=== PATIENT | female | born 1990 | race Caucasian/White ===

== ENCOUNTER 2021-06-20 14:07 | Emergency (ER) | payer OTHER ==
[~2021-06-20] VITALS: Ht 165.1 cm; Wt 63.6 kg
[2021-06-20] MEDS ORDERED: CYMB1CAP5 PO (14:19)
[2021-06-20] MEDS ORDERED: ORTH1TAB8 PO (14:19)
[2021-06-20 15:42] LABS: BASO % 0.5 % (0.0-1.0); EOS # 0.1 10^3/uL (0.0-0.5); HEMATOCRIT 37.2 % (36.0-47.0); HEMOGLOBIN 12.7 g/dl (12.0-15.5); LYMPH # 1.6 10^3/uL (1.5-5.0); LYMPH % 25.8 % (24.0-44.0); MEAN CORPUSCULAR HEMOGLOBIN 32.1 pg (27.0-33.0); MEAN CORPUSCULAR HGB CONC 34.1 g/dl (32.0-36.5); MEAN CORPUSCULAR VOLUME 93.9 fl (80.0-96.0); MONO # 0.5 10^3/uL (0.0-0.8); MONO % 7.8 % (2.0-8.0); NEUTROPHILS # 3.9 10^3/uL (1.5-8.5); NEUTROPHILS % 64.6 % (36.0-66.0); PLATELET COUNT, AUTOMATED 199 10^3/uL (150-450); RED BLOOD COUNT 3.96 10^6/uL (4.00-5.40)
[2021-06-20] MEDS ORDERED: NORCO, ANEXSIA 5/325MG TABLET (HYDROcodone/ACETAMINOPHEN) PO ONE (15:50)
[2021-06-20 16:04] LABS: ALBUMIN 3.7 GM/DL (3.2-5.2); ALT/SGPT 18 U/L (12-78); BILIRUBIN,DIRECT < 0.1 MG/DL (0.0-0.2); BILIRUBIN,TOTAL 0.2 MG/DL (0.2-1.0); TOTAL PROTEIN 6.9 GM/DL (6.4-8.2)
[2021-06-20] MEDS ORDERED: KETOROLAC TROMETHAMINE 10 MG TAB PO ONE (16:05)
[2021-06-20 16:09] LABS: INR 0.92; PROTHROMBIN TIME 12.8 SECONDS (12.7-14.5)
[2021-06-20 16:10] LABS: PARTIAL THROMBOPLASTIN TIME 26.2 SECONDS (25.9-37.0)
[2021-06-20] MEDS ORDERED: PROV10TA PO (17:03)
[2021-06-20 17:16] VITALS: BP 112/70
== END 2021-06-20 17:17 | disposition home or self-care (01) ==
LOC: M ED 14:07
DX: N93.8 Other specified abnormal uterine and vaginal bleeding (principal); F41.9 Anxiety disorder, unspecified

== ENCOUNTER 2021-07-02 12:11 | Emergency (ER) | payer OTHER ==
[~2021-07-02] VITALS: Ht 165.1 cm; Wt 65.7 kg
[~2021-07-02 12:11] MED LIST: CYMB1CAP5 PO; ORTH1TAB8 PO; PROV10TA PO
[2021-07-02] MEDS ORDERED: MEDR10TA (12:26)
[2021-07-02 13:23] LABS: BASO % 0.5 % (0.0-1.0); EOS % 0.5 % (0.0-3.0); HEMATOCRIT 36.5 % (36.0-47.0); HEMOGLOBIN 12.2 g/dl (12.0-15.5); LYMPH # 1.8 10^3/uL (1.5-5.0); MEAN CORPUSCULAR HGB CONC 33.4 g/dl (32.0-36.5); MEAN CORPUSCULAR VOLUME 95.8 fl (80.0-96.0); MONO # 0.4 10^3/uL (0.0-0.8); MONO % 5.6 % (2.0-8.0); NEUTROPHILS # 4.3 10^3/uL (1.5-8.5); NEUTROPHILS % 66.1 % (36.0-66.0); PLATELET COUNT, AUTOMATED 221 10^3/uL (150-450); RED BLOOD COUNT 3.81 10^6/uL (4.00-5.40); WHITE BLOOD COUNT 6.5 10^3/uL (4.0-10.0)
[2021-07-02 13:36] LABS: HCG, SERUM QUALITATIVE NEGATIVE (NEGATIVE)
[2021-07-02 13:45] LABS: BLOOD UREA NITROGEN 9 MG/DL (7-18); CALCIUM LEVEL 9.1 MG/DL (8.5-10.1); CARBON DIOXIDE LEVEL 26 MEQ/L (21-32); CHLORIDE LEVEL 106 MEQ/L (98-107); CREATININE FOR GFR 0.71 MG/DL (0.55-1.30); GLOMERULAR FILTRATION RATE > 60.0 (>60); GLUCOSE, FASTING 88 MG/DL (70-100); POTASSIUM SERUM 3.7 MEQ/L (3.5-5.1); SODIUM LEVEL 139 MEQ/L (136-145)
[2021-07-02] MEDS ORDERED: NS 1,000 ML IV ONE (14:15)
[2021-07-02] MEDS ORDERED: PROV10TA PO (16:01)
[2021-07-02 17:08] VITALS: BP 119/76
== END 2021-07-02 17:10 | disposition home or self-care (01) ==
LOC: M ED 12:11
DX: N93.8 Other specified abnormal uterine and vaginal bleeding (principal); N83.299 Other ovarian cyst, unspecified side; N85.00 Endometrial hyperplasia, unspecified; D25.9 Leiomyoma of uterus, unspecified; Z87.59 Personal history of other complications of pregnancy, childbirth and the puerperium; F41.9 Anxiety disorder, unspecified; D68.61 Antiphospholipid syndrome; Z79.899 Other long term (current) drug therapy

== ENCOUNTER → 2021-12-31 | Outpatient (CLI) | payer OTHER ==
[~2021-12-31] MED LIST changes: +MEDR10TA
== END ==
LOC: M WUC 13:20
PROVIDERS: ATTEND Internal Medicine Rheumatology
DX: M51.34 Other intervertebral disc degeneration, thoracic region (principal); R76.8 Other specified abnormal immunological findings in serum; D68.61 Antiphospholipid syndrome; M25.50 Pain in unspecified joint

== ENCOUNTER → 2022-01-05 | Outpatient (REF) | payer OTHER ==
[2022-01-05 13:21] LABS: BASO % 0.4 % (0.0-1.0); EOS # 0.1 10^3/uL (0.0-0.5); EOS % 1.3 % (0.0-3.0); HEMATOCRIT 37.4 % (36.0-47.0); HEMOGLOBIN 12.3 g/dl (12.0-15.5); LYMPH # 1.2 10^3/uL (1.5-5.0); LYMPH % 25.5 % (24.0-44.0); MEAN CORPUSCULAR HEMOGLOBIN 31.2 pg (27.0-33.0); MEAN CORPUSCULAR HGB CONC 32.9 g/dl (32.0-36.5); MEAN CORPUSCULAR VOLUME 94.9 fl (80.0-96.0); MONO # 0.3 10^3/uL (0.0-0.8); MONO % 5.3 % (2.0-8.0); NEUTROPHILS # 3.2 10^3/uL (1.5-8.5); NEUTROPHILS % 67.3 % (36.0-66.0); PLATELET COUNT, AUTOMATED 216 10^3/uL (150-450); RED BLOOD COUNT 3.94 10^6/uL (4.00-5.40); WHITE BLOOD COUNT 4.7 10^3/uL (4.0-10.0)
[2022-01-05 13:40] LABS: APPEARANCE, URINE MANUAL CLEAR (CLEAR); BILIRUBIN, URINE MANUAL NEGATIVE (NEGATIVE); BLOOD URINE MANUAL NEGATIVE (NEGATIVE); COLOR, URINE MANUAL YELLOW (YELLOW); GLUCOSE, URINE (UA) MANUAL NEGATIVE (NEGATIVE); KETONE, URINE MANUAL NEGATIVE (NEGATIVE); LEUKOCYTE ESTERASE, URINE MAN NEGATIVE (NEGATIVE); NITRITE, URINE MANUAL NEGATIVE (NEGATIVE); PH,URINE MAN 5.5 UNITS (5.0 - 7.0); PROTEIN, URINE MANUAL NEGATIVE (NEGATIVE); SPECIFIC GRAVITY,URINE MANUAL 1.015 (1.002-1.035); UROBILINOGEN, URINE MANUAL NORMAL (NORMAL)
[2022-01-05 13:42] LABS: ERYTHROCYTE SEDIMENTATION RATE 10 mm/hr (0-20)
[2022-01-05 14:03] LABS: ALBUMIN 3.7 GM/DL (3.2-5.2); ALT/SGPT 18 U/L (12-78); BILIRUBIN,TOTAL 0.5 MG/DL (0.2-1.0); BLOOD UREA NITROGEN 11 MG/DL (7-18); CALCIUM LEVEL 9.1 MG/DL (8.5-10.1); CARBON DIOXIDE LEVEL 25 MEQ/L (21-32); CHLORIDE LEVEL 106 MEQ/L (98-107); COMPLEMENT C3 107 MG/DL (90-180); COMPLEMENT C4 17 MG/DL (10-40); CREATININE FOR GFR 0.88 MG/DL (0.55-1.30); CREATININE,RANDOM URINE 66.4 MG/DL; GLOMERULAR FILTRATION RATE > 60.0 (>60); GLUCOSE, FASTING 65 MG/DL (70-100); SODIUM LEVEL 136 MEQ/L (136-145); TOTAL PROTEIN 7.2 GM/DL (6.4-8.2); TOTAL PROTEIN,RANDOM URINE 8.1 MG/DL (0.0-12.0)
== END ==
LOC: M SFHCRHEU 11:16
PROVIDERS: ATTEND Internal Medicine Rheumatology
DX: R76.8 Other specified abnormal immunological findings in serum (principal); D68.61 Antiphospholipid syndrome; M25.50 Pain in unspecified joint

== ENCOUNTER → 2022-02-22 | Outpatient (REF) | payer OTHER | LOC: M PLALAB 13:12 | PROVIDERS: ATTEND Obstetrics & Gynecology | DX: N64.52 Nipple discharge (principal) ==

== ENCOUNTER → 2022-03-18 | Outpatient (CLI) | payer OTHER | LOC: M WHC 07:42 | PROVIDERS: ATTEND Obstetrics & Gynecology | DX: N64.52 Nipple discharge (principal); N63.11 Unspecified lump in the right breast, upper outer quadrant ==

== ENCOUNTER → 2023-08-10 | Outpatient (CLI) | payer OTHER ==
[~2023-08-10] MED LIST changes: -MEDR10TA; +MEDR10TA9
== END ==
LOC: M PLALAB 15:48
PROVIDERS: ATTEND Obstetrics & Gynecology
DX: Z12.4 Encounter for screening for malignant neoplasm of cervix (principal); Z80.41 Family history of malignant neoplasm of ovary

== ENCOUNTER → 2023-08-10 | Outpatient (CLI) | payer OTHER ==
[2023-08-10 18:08] LABS: BASO % 0.5 % (0.0-1.0); EOS % 0.3 % (0.0-3.0); HEMATOCRIT 36.9 % (36.0-47.0); HEMOGLOBIN 11.9 g/dl (12.0-15.5); LYMPH % 33.9 % (24.0-44.0); MEAN CORPUSCULAR HEMOGLOBIN 27.9 pg (27.0-33.0); MEAN CORPUSCULAR HGB CONC 32.2 g/dl (32.0-36.5); MEAN CORPUSCULAR VOLUME 86.4 fl (80.0-96.0); MONO # 0.4 10^3/uL (0.0-0.8); MONO % 7.2 % (2.0-8.0); NEUTROPHILS # 3.4 10^3/uL (1.5-8.5); NEUTROPHILS % 57.9 % (36.0-66.0); PLATELET COUNT, AUTOMATED 254 10^3/uL (150-450); RED BLOOD COUNT 4.27 10^6/uL (4.00-5.40); WHITE BLOOD COUNT 5.9 10^3/uL (4.0-10.0)
[2023-08-10 18:13] LABS: ERYTHROCYTE SEDIMENTATION RATE 8 mm/hr (0-20)
[2023-08-10 18:32] LABS: C REACTIVE PROTEIN QUANTITATIV < 0.40 MG/DL (<1.0)
[2023-08-10 18:34] LABS: ALBUMIN 4.3 G/DL (3.2-5.2); ALKALINE PHOSPHATASE 60 U/L (46-116); ALT/SGPT 17 U/L (7.0-40); AST/SGOT 15 U/L (<34); BILIRUBIN,TOTAL 0.6 MG/DL (0.3-1.2); BLOOD UREA NITROGEN 13 MG/DL (9-23); CALCIUM LEVEL 9.5 MG/DL (8.5-10.1); CARBON DIOXIDE LEVEL 26 MMOL/L (20-31); CHLORIDE LEVEL 104 MMOL/L (98-107); CREATININE FOR GFR 0.71 MG/DL (0.55-1.30); GLOMERULAR FILTRATION RATE > 60.0 (>60); GLUCOSE, FASTING 79 MG/DL (60-100); POTASSIUM SERUM 4.4 MMOL/L (3.5-5.1); SODIUM LEVEL 135 MMOL/L (136-145); THYROID STIMULATING HORMONE 1.516 uIU/ML (0.55-4.78); TOTAL PROTEIN 7.6 G/DL (5.7-8.2)
[2023-08-10 18:36] LABS: FREE T4 0.96 NG/DL (0.89-1.76)
[2023-08-12 23:07] LABS: IMMUNOTYPING SERUM IGA SO 276 mg/dL (87-352); IMMUNOTYPING SERUM IGM SO 187 mg/dL (26-217)
== END ==
LOC: M PLALAB 15:51
PROVIDERS: ATTEND Family Medicine
DX: R61 Generalized hyperhidrosis (principal)

== ENCOUNTER 2024-07-09 14:35 | Outpatient (CLI) | payer OTHER ==
[~2024-07-09] VITALS: Ht 165.1 cm; Wt 66.2 kg
[~2024-07-09 14:35] MED LIST changes: +ALBUTEROL SULFATE 2.5MG/0.5ML INH NEB SOLN INH PRN; +EPINEPHrine INJ 1 MG/ML 1ML AMP IM PRN; +diphenhydrAMINE 50MG/ML VIAL IV PRN; +methylPREDNISolone 125MG 2ML VIAL IV PRN
[2024-07-09 14:45] VITALS: BP 136/70; O2SAT 100
[2024-07-09 14:50] VITALS: BP 130/82; O2SAT 100
[2024-07-09] MEDS: IRON SUCROSE 300 MG in NS 250 ML OVER 90 MIN. IV ONE (14:51)
== END 2024-07-09 16:50 ==
LOC: M INFU 14:35
PROVIDERS: ATTEND Family Medicine
DX: D64.9 Anemia, unspecified (principal)
CPT/HCPCS: 96365; J1756

== ENCOUNTER 2024-07-16 14:45 | Outpatient (CLI) | payer OTHER ==
[~2024-07-16] VITALS: Ht 165.1 cm; Wt 63.6 kg
[2024-07-16 15:00] VITALS: BP 131/59; O2SAT 100
[2024-07-16] MEDS: IRON SUCROSE 300 MG in NS 250 ML OVER 90 MIN. IV ONE (15:06)
[2024-07-16 16:40] VITALS: BP 128/62; O2SAT 99
== END 2024-07-16 16:45 ==
LOC: M INFU 14:45
PROVIDERS: ATTEND Family Medicine
DX: D64.9 Anemia, unspecified (principal)
CPT/HCPCS: 96365; 96366; J1756

== ENCOUNTER → 2024-08-14 | Outpatient (REF) | payer OTHER ==
[~2024-08-14] MED LIST changes: -ALBUTEROL SULFATE 2.5MG/0.5ML INH NEB SOLN INH PRN; -EPINEPHrine INJ 1 MG/ML 1ML AMP IM PRN; -diphenhydrAMINE 50MG/ML VIAL IV PRN; -methylPREDNISolone 125MG 2ML VIAL IV PRN
== END ==
LOC: M LAB REF 12:18
PROVIDERS: ATTEND Dentist
DX: A31.9 Mycobacterial infection, unspecified (principal)

== ENCOUNTER 2024-12-10 12:25 | Outpatient (CLI) | payer OTHER ==
[~2024-12-10] VITALS: Ht 165.1 cm; Wt 63.6 kg
[~2024-12-10 12:25] MED LIST changes: +ALBUTEROL SULFATE 2.5 MG/0.5 ML INH CONCENTRATE NEB SOLN INH PRN; +EPINEPHrine INJ 1 MG/ML 1ML AMP IM PRN; +diphenhydrAMINE 50 MG/ML VIAL IV PRN
[2024-12-10 12:40] VITALS: BP 117/72; O2SAT 100
[2024-12-10] MEDS: IRON SUCROSE 300 MG in NS 250 ML OVER 90 MIN. IV ONE (13:11)
[2024-12-10 14:55] VITALS: BP 123/71; O2SAT 100
== END 2024-12-10 14:55 | disposition home or self-care (01) ==
LOC: M INFU 12:25
PROVIDERS: ATTEND Nurse Practitioner Primary Care
DX: D50.9 Iron deficiency anemia, unspecified (principal)
CPT/HCPCS: 96365; 96366; J1756

== ENCOUNTER → 2025-04-24 | Outpatient (REF) | payer OTHER ==
[~2025-04-24] MED LIST changes: -ALBUTEROL SULFATE 2.5 MG/0.5 ML INH CONCENTRATE NEB SOLN INH PRN; -EPINEPHrine INJ 1 MG/ML 1ML AMP IM PRN; -diphenhydrAMINE 50 MG/ML VIAL IV PRN
== END ==
LOC: M PLALAB 14:32
PROVIDERS: ATTEND Obstetrics & Gynecology
DX: Z12.4 Encounter for screening for malignant neoplasm of cervix (principal)

== ENCOUNTER → 2025-04-25 | Outpatient (REF) | payer OTHER ==
[2025-04-27 14:18] LABS: HPV APTIMA Not Detected (Not Detected)
== END ==
LOC: M SFHCWAGY 13:02
PROVIDERS: ATTEND Obstetrics & Gynecology
DX: Z12.4 Encounter for screening for malignant neoplasm of cervix (principal)
CPT/HCPCS: 87624; G0123

== ENCOUNTER → 2025-04-29 | Outpatient (CLI) | payer OTHER | LOC: M RAD 10:24 | PROVIDERS: ATTEND Obstetrics & Gynecology | DX: Z97.5 Presence of (intrauterine) contraceptive device (principal) ==